=== PATIENT | male | born 1965 | race Caucasian/White ===

== ENCOUNTER 2016-05-14 14:08 | Emergency (ER) | payer OTHER ==
--- NOTE | 2016-06-02 11:50 | ER ---
ADMIT: 05/14/2016 RM/LOC: ER [facility] MR#: [id number] [address] [address] GARRETT ESTEVEZ [address] [place] [address] Emergency Room Report SEX: M AGE: 51 : 1965 DATE: 05/14/2016 ADDENDUM: This patient comes into the ER because he has a laceration to the palm of his left hand. He was pushing down a pipe through the ground, and it came up, bounced in his hand and made a flap laceration along the thenar eminence. It is a mentasta with a small flap attaching itself. Although, there is only a small area of the flap that is attached. It does have good color compared with the rest of the palm. I irrigated the laceration under tap water for 5 minutes after infiltrating it with 5 mL of Marcaine. Under sterile procedure, I placed 10 interrupted stitches using 4-0 Prolene tacking it down. The patient was placed on Keflex. He is to follow up with Dr. Glover next week and to not use that hand at work doing any gripping for 14 days. Please see my T-sheet. PEGGY Duarte / David Reyes MD / milagrosl JOB #: [id number] CC: David Reyes MD, Attending Physician Stanton Glover MD, Family Physician
== END 2016-05-14 16:12 | disposition home or self-care (01) ==
LOC: ER 14:08
PROC: 0HQGXZZ Repair Left Hand Skin, External Approach (ICD-10-PCS; principal; 2016-05-14)
DX: S61.412A Laceration without foreign body of left hand, initial encounter (principal); Z23 Encounter for immunization; Z88.2 Allergy status to sulfonamides; W45.8XXA Other foreign body or object entering through skin, initial encounter

== ENCOUNTER 2016-05-20 12:09 | Emergency (ER) | payer OTHER ==
--- NOTE | 2016-05-29 15:21 | ER ---
ADMIT: 05/20/2016 RM/LOC: ER [facility] MR#: [id number] [address] [address] GARRETT ESTEVEZ [address] [place] [address] Emergency Room Report SEX: M AGE: 51 : 1965 DATE: 05/20/2016 ADDENDUM: This patient was seen in the ER 6 days ago for a laceration to his hand. He thinks one of the stitches pulled today and he is worried that maybe it needs to be re-stitched. On physical exam, he does have a flap laceration that is healing quite well. There is an area where one of the stitches fell out. There are no signs of infection, and it looks like it is coming together well. We did explain signs and symptoms for him to watch for. Otherwise, he should continue with his appointment to have his stitches removed. He did have some concern about not doing any gripping with that hand and was having difficulty doing that. We did put him in a cock-up wrist splint which helped to protect that laceration along the thenar eminence and decreased his immobilization. Please see my T-sheet. PEGGY Duarte / Stanton Irwin MD / modl JOB #: [id number] CC: Stanton Irwin MD, Attending Physician Elsa Bravo MD, Family Physician
== END 2016-05-20 13:44 | disposition home or self-care (01) ==
LOC: ER 12:09
PROC: 2W3FX1Z Immobilization of Left Hand using Splint (ICD-10-PCS; principal; 2016-05-20)
DX: S61.412A Laceration without foreign body of left hand, initial encounter (principal); X58.XXXA Exposure to other specified factors, initial encounter

== ENCOUNTER 2016-10-26 21:58 | Emergency (ER) | payer OTHER ==
--- NOTE | 2016-10-27 14:46 | ER ---
ADMIT: 10/26/2016 RM/LOC: ER [facility] MR#: [id number] [address] [address] NAYELIGÓMEZ GARRETT Sohail [address] [place] [address] Emergency Room Report SEX: M AGE: 51 : 1965 DATE: 10/26/2016 HISTORY OF PRESENT ILLNESS: The patient is a 51-year-old male who presents to the emergency room due to some random movements while he was watching some video. thinks he was like in absence seizure. He does have a headache that has gone away by the time he arrived. states that in 1997, he had similar symptoms. He was under a lot of stress, and every time he gets under stress, he acts this way. 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 PHYSICAL EXAMINATION: VITAL SIGNS: Blood pressure 137/77, pulse 60, respirations 16, temperature is 99, and O2 saturation is 100%. GENERAL: He does look very comfortable. No acute distress. kind of made him come to the ER for evaluation. His physical examination is totally negative. NEUROLOGIC: He is neurologically intact. Mood and affect are appropriate. Cerebellar and Romberg are normal. No pronator drift. EXTREMITIES: Well perfused. SKIN: Normal. NECK: Supple. HEENT: Normal inspection. RESPIRATORY: No distress. CARDIOVASCULAR SYSTEM: Regular in rate and rhythm. CLINICAL IMPRESSION: Rhythmical tremors. EMERGENCY DEPARTMENT COURSE: I did do basic labs, which all came back negative or within normal limits. Advised to follow up with PCP, Nato Barraza and neurological evaluation for EEG evaluation as well to rule out seizure disorder. Encouraged to follow up with Dr. Bravo and get B12 study. He is to do those. Does respond, behavioral modification needed. The patient verbalized understanding. He also understands that if he drives under these conditions, he may not know what he is doing, so caution is given to him and advised to not drive until he sees a primary provider who can get him set up for EEG. 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 PEGGY Odonnell / Stanton Irwin MD / ankit JOB #: [id number] CC: Stanton Irwin MD, Attending Physician Elsa Bravo MD, Family Physician
== END 2016-10-27 01:30 | disposition home or self-care (01) ==
LOC: ER 21:58
DX: G25.2 Other specified forms of tremor (principal); G40.909 Epilepsy, unspecified, not intractable, without status epilepticus; Z98.890 Other specified postprocedural states; Z88.2 Allergy status to sulfonamides; Z79.899 Other long term (current) drug therapy

== ENCOUNTER → 2016-11-01 | Outpatient (CLI) | payer OTHER | END | disposition home or self-care (01) | LOC: RAD.S 07:26 | DX: R56.9 Unspecified convulsions (principal) ==